=== PATIENT | male | born 1955 | race Caucasian/White ===

== ENCOUNTER → 2018-08-23 | Outpatient (REF) ==
--- NOTE | 2018-08-24 02:30 | REP ---
Clinical: Degenerative neck pain . Technique: AP, lateral, swimmers, and open-mouth views. Findings: Alignment and lordosis is maintained. There is no evidence for acute fracture / compression injury or subluxation. Open mouth view demonstrates normal C1-C2 articulation and odontoid process. Mild/moderate multilevel degenerative changes include endplate sclerosis with disc space narrowing and anterior osteophytosis. Findings most pronounced at C5-6, and C6-7. Impression: Mild/moderate multilevel degenerative changes predominantly involving C5-C7. Electronically Signed by Babatunde Pruitt MD 08/24/2018 02:22 A
--- NOTE | 2018-08-24 02:31 | REP ---
Clinical: Knee pain. Technique: AP, lateral, bilateral oblique and sunrise views of the left knee. Findings: Early advanced tricompartmental osteoarthritic degenerative changes include osteophytosis, periarticular / subchondral sclerosis, joint space narrowing, chondrocalcinosis, and overlying soft tissue swelling. Small effusion cannot be excluded. No acute fracture dislocation. Impression: Early advanced tricompartmental osteoarthritic degenerative changes. Electronically Signed by Babatunde Pruitt MD 08/24/2018 02:23 A
== END ==
LOC: M SMT 13:00
PROVIDERS: ATTEND Internal Medicine
DX: M25.78 Osteophyte, vertebrae (principal); M50.322 Other cervical disc degeneration at C5-C6 level; M50.323 Other cervical disc degeneration at C6-C7 level; M17.12 Unilateral primary osteoarthritis, left knee

== ENCOUNTER → 2019-02-08 | Outpatient (CLI) | payer BC ==
--- NOTE | 2019-02-08 17:27 | REP ---
Two-view chest: 02/08/2019. Indication: Cough. Comparison: None. Findings: The lungs are clear. There is no pleural effusion or pneumothorax. The cardiomediastinal silhouette is unremarkable. Impression: Clear lungs. Electronically Signed by Elvin Bliss DO 02/08/2019 05:19 P
== END ==
LOC: M SMT 14:31
PROVIDERS: ATTEND Internal Medicine Pulmonary Disease
DX: R05 Cough (principal)

== ENCOUNTER → 2019-03-20 | Outpatient (CLI) | payer BC ==
[~2019-03-20] MED LIST: METHACHOLINE KIT (J7674) INH ONE
--- NOTE | 2019-03-20 08:19 | PFTRPT ---
Site: [facility], [address] [place], [address] ID: [id number] Name: RUEL ALICEA Visit Date: 03/20/2019 Second ID: [id number] Referring Doctor: Dameon Pritchard MD Reviewing Doctor: Dameon Pritchard MD Shift Coordinator: Zoie LOVETT, DON Age: 63 : 1955 Sex: Male Race: Height: 68.00 Inches Weight: 205.00 Lbs BSA: 2.07 Order IDs: [id number] Requested Test(s): <RESP-PFT.METH CHAL> Diagnosis: R05 of albuterol for postbronchodilator. Review Status: Not Reviewed Pre-Bronch Post-Bronch Pred Actual %Pred Actual %Chng SPIROMETRY FVC (L) 4.34 4.59 105 4.57 FEV1 (L) 3.26 3.70 113 3.66 FEV1/FVC (%) 75 81 107 80 FEF 25% (L/sec) 7.39 7.68 103 7.47 -2 FEF 50% (L/sec) 4.65 4.70 101 4.47 -4 FEF 75% (L/sec) 1.37 1.43 104 1.35 -5 FEF 25-75% (L/sec) 2.64 3.69 139 3.56 -3 FEF Max (L/sec) 8.55 8.95 104 7.59 -15 FIVC (L) 4.54 4.57 FIF 50% (L/sec) 4.64 7.10 153 5.23 -26 FIF Max (L/sec) 7.21 5.66 -21 Expiratory Time (sec) 8.19 7.12 -13 Back Extrap Vol (L) 0.15 0.15 -2 Time To FEFmax (sec) 0.067 0.122 81
== END ==
LOC: M CARPUL 06:54
PROVIDERS: ATTEND Internal Medicine Pulmonary Disease
DX: R05 Cough (principal)
CPT/HCPCS: 94070; J7674